=== PATIENT | male | born 1985 | race Caucasian/White ===

== ENCOUNTER 2019-12-07 18:39 | Observation (INO) | payer BC, OTHER, SELFPAY ==
[2019-12-07] VITALS (8 sets, daily range): BP systolic 94–120; BP diastolic 66–80; PULSE 68–86; RESP 16–20; TEMP 36.5–36.6; O2SAT 96–99; BMI 33.0
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
[2019-12-07 19:18] LABS: Basophils # 0.1 10^3/uL (0.0-0.1); Basophils % 0.2 %; Eosinophils # 0.1 10^3/uL (0.0-0.8); Eosinophils % 0.4 %; Hematocrit 51.5 % (42.0-52.0); Hemoglobin 16.9 g/dL (11.7-16.6); Lymphocytes # 1.6 10^3/uL (0.8-4.8); Lymphocytes % 7.9 %; Mean Corpuscular HGB Conc 32.8 g/dL (30.0-36.0); Mean Corpuscular Hemoglobin 30.8 pg (28.0-34.0); Mean Corpuscular Volume 93.8 fL (80-94); Mean Platelet Volume 9.5 fL (7.4-10.4); Monocytes # 0.8 10^3/uL (0.2-0.9); Monocytes % 4.2 %; Neutrophils # 17.5 10^3/uL (1.8-7.7); Neutrophils % 86.7 %; Nucleated Red Blood Cells % 0 %; Platelet Count 302 10^3/cmm (130-400); Red Blood Count 5.49 10^6/uL (4.1-5.3); Red Cell Distribution Width 12.9 % (12.1-15.1); White Blood Count 20.2 10^3/uL (4.0-10.0)
[2019-12-07] MEDS: HYDROmorphone 1 mg/mL INJ 1 mL IVP ×3 (19:25→23:09)
[2019-12-07 19:37] LABS: Alanine Aminotransferase 18 U/L (0-41); Albumin Level 4.9 g/dL (3.5-5.2); Alkaline Phosphatase 74 IU/L (40-130); Anion Gap 16.3 (5-19); Aspartate Amino Transferase 17 U/L (0-40); Blood Urea Nitrogen 13 mg/dL (6-20); Carbon Dioxide 26 mmol/L (22-29); Chloride 102 mmol/L (98-107); Globulin 2.7 g/dL (1.3-4.6); Glomerular Filtration Rate 86.6 mL/min (90-130); Glucose 148 mg/dL (65-115); Lipase 27 U/L (13-60); Osmolality Calculated 289 mOsm/kg (285-295); Potassium 4.3 mmol/L (3.5-5.1); Sodium 140 mmol/L (136-145); Total Bilirubin 0.3 mg/dL (0.15-1.2); Total Protein 7.6 g/dL (6.6-8.7)
[2019-12-07] MEDS: sodium chloride 0.9% 1,000 ML 999 ML IV (19:59)
[2019-12-07] MEDS: ondansetron 2 mg/ML SDV 2 mL 4 MG IVP ×2 (20:04→23:09)
[2019-12-07] MEDS: iohexol 300 mg/mL 100 mL Btl IV (20:17)
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
--- NOTE | 2019-12-07 21:24 | PC.NURSE ---
Pt. to CT and back via stretcher, stable
[2019-12-07] MEDS: ciprofloxacin 400 MG/200 ML PREMIX 200 MG IV (21:31)
[2019-12-07 21:45] LABS: Lactate (Lactic Acid level) 1.3 mmol/L (0.5-2.2)
[2019-12-07] MEDS: piperacillin-tazobactam 3.375 GM in sodium chloride 0.9% (plus) 50 ML IV (23:10)
[2019-12-07] MEDS: dextrose 5%-sod chloride 0.45% 1,000 ML 75 ML IV (23:10)
[2019-12-07 23:59] LABS: Add Urine Microscopic? NO
[2019-12-08 00:34] LABS: Bilirubin Urine Neg (NEGATIVE); Blood Urine Neg (Negative); Glucose Urine UA Norm (Normal); Ketones Urine Negative (Negative); Leukocyte Esterase Urine Negative (Negative); Nitrate Urine Negative (Negative); Protein Urine Neg (Negative); Urine Appearance Clear (CLEAR); Urine Color Yellow (Yellow); Urobilinogen Urine Norm (Negative); pH Urine 5 (5-7)
[2019-12-08 00:40] LABS: Amphetamines Screen Urine Negative (Negative); Barbiturates Screen Urine Negative (Negative); Benzodiazepines Screen Urine Negative (Negative); Cocaine Screen Urine Negative (Negative); Opiate Screen Urine Positive (Negative); PCP Screen Urine Negative (Negative); THC Screen Urine Negative (Negative)
[2019-12-08 04:00] VITALS: BP 95/57; PULSE 65; RESP 18; TEMP 37.1; O2SAT 98
[2019-12-08 05:14] LABS: Basophils % 0.4 %; Eosinophils # 0.2 10^3/uL (0.0-0.8); Eosinophils % 1.6 %; Hematocrit 44.7 % (42.0-52.0); Hemoglobin 14.4 g/dL (11.7-16.6); Mean Corpuscular HGB Conc 32.2 g/dL (30.0-36.0); Mean Corpuscular Hemoglobin 30.1 pg (28.0-34.0); Mean Corpuscular Volume 93.5 fL (80-94); Mean Platelet Volume 10.2 fL (7.4-10.4); Monocytes # 0.9 10^3/uL (0.2-0.9); Monocytes % 8.4 %; Neutrophils % 62.3 %; Nucleated Red Blood Cells % 0 %; Platelet Count 260 10^3/cmm (130-400); Red Blood Count 4.78 10^6/uL (4.1-5.3); Red Cell Distribution Width 13.1 % (12.1-15.1); White Blood Count 11.2 10^3/uL (4.0-10.0)
[2019-12-08] MEDS: piperacillin-tazobactam 3.375 GM in sodium chloride 0.9% (plus) 50 ML IV (06:39)
[2019-12-08 06:43] LABS: Anion Gap 13.9 (5-19); Blood Urea Nitrogen 8 mg/dL (6-20); Calcium 8.9 mg/dL (8.5-10.5); Carbon Dioxide 24 mmol/L (22-29); Chloride 106 mmol/L (98-107); Creatinine Clr Calc Pharmacy 160.3695; Glucose 120 mg/dL (65-115); Osmolality Calculated 287 mOsm/kg (285-295); Potassium 3.9 mmol/L (3.5-5.1); Sodium 140 mmol/L (136-145)
[2019-12-08 07:41] VITALS: BP 91/54; PULSE 84; RESP 18; TEMP 37; O2SAT 98
[2019-12-08] MEDS: pantoprazole 40 mg SDV IVP (08:50)
--- NOTE | 2019-12-08 09:10 | PC.CHAP ---
Pastoral Care Encounter/Spiritual Assessment Type of Contact [] Declined music publicist visit [] Patient/Family/Request visit [] Outpatient visit [] Follow-up visit [] Physician referral [] Code/Alert [x] Routine visit [] Staff referral [] Actively dying [] Patient sleeping [] Family support [] [] Out of room [] Palliative care [] [] Receiving care in room [] Pre-surgical visit [] Trauma [] Long length of stay [] ICU visit [] Other: Relational/Emotional Strength [] Patient feels connected with others/family/visitors/staff [] Distress [] Loneliness/isolation [] Abandonment Spirituality of Patient [] Person of Charis [] Attends Methodist of their Charis [] Believes in Prayer [] Reads Bible or Adventist materials [] There are Spiritual issues to be addressed Manhole Stripper Interventions [] Prayer [x] Active listening [x] Non-anxious presence [] Spiritual/emotional support [] Crisis/trauma care [] Spiritual counseling [] Bereavement support [] Provided bereavement packet [] Provided Bible/devotional materials [] Provided toy/stuffed animal, coloring book to patient or family member [] Provided Communion [] Anointing/[place] [] Salvation [x] Completed spiritual assessment [] Other: Impact on Illness or Injury [] Angry [] Fearful [] Anxious [] Often cries [] Exhaustion [] Unable to work [] Unable to attend latter day [] Unable to walk/stand [] Unable to read [] Unable to drive [] Unable to eat/drink [] Unable to sleep [] Unable to be with family [] Patient intubated [] Other: Summary Patient not in social mood. abd pain gone, wants to go home. Time spent with patient 5 min
[2019-12-08] MEDS: dextrose 5%-sod chloride 0.45% 1,000 ML 75 ML IV (10:37)
[2019-12-08 11:49] VITALS: BP 105/67; PULSE 69; RESP 18; TEMP 36.8; O2SAT 97
[2019-12-08] MEDS: sennosides-docusate Tablet 2 TAB PO (12:08)
[2019-12-08] MEDS: polyethylene glycol 3350 Pkt 17 gm PO (12:09)
--- NOTE | 2019-12-08 14:56 | P.DS_ITS ---
Discharge Providers Date of Admission: 12/07/19 21:00 Date of Discharge: December 08, 2019 Attending Provider at Admission: Hudson Strong MD Attending Provider at Discharge: Luis Staples MD Primary Care Provider: DOCTOR NOT ON FILE Diagnoses at Discharge Discharge Diagnosis (1) Jejunitis: Status: Acute Problem details: Patient reports that after passing air he is relatively asymptomatic, taking p.o. White blood cell count has dropped dramatically. (2) Abdominal pain: Status: Acute Qualifiers: Abdominal location: epigastric Qualified Code(s): R10.13 - Epigastric pain (3) Leukocytosis: Status: Acute Problem details: Significantly improved Reason for Visit Reason for Visit: abd pain Hospital Course Hospital Course: Vernon is a 34-year-old white male who presents to the hospital with significant abdominal pain. He reports that for a while he has been having episodes perhaps once a month where he will have some severe cramp ing, pain. He will then have a bowel movement and all of his symptomatology will go away. This is what happened to drive him to the emergency department this time. He denies any fever, blood in the stool. On CT scan there was concern of jejunitis. Patient reports overnight he has passed some air and he has no significant focal discomfort anymore. He has no nausea. He has been able to tolerate a diet. He has not yet had a bowel movement. He would like to go home. For the last year or so he has been having thin stools and a colonoscopy is planned very soon in [place]. White blood cell count initially high had improved drastically overnight. Lactate level was tested and normal. With his clinical improvement he will be discharged on MiraLAX, senna. He will get 7 days of Cipro and Flagyl. He will follow-up in [place] for colonoscopy. He will return for any concerns or worsening. He will also follow-up with his primary care provider. Physical Exam Narrative: EXAM NARRATIVE: Apparent distress Cardiovascular regular in rhythm without murmur Lungs clear Abdomen is soft. Perhaps some mild generalized tenderness Extremities no cyanosis clubbing or edema. Discharge Data Data Completed and Pending: Completed Studies During Hospitalization Category Date Time Status CT abdomen pelvis w con* [id number] Urge nt Cat Scan 12/07/19 19:16 Completed Pending at discharge Category Date Time Status Enteric Parasite Panel by PCR Stat Lab 12/07/19 22:37 Uncollected Stool Culture, Ba cterial [Enteric B acterial Panel by Lab 12/07/19 22:37 Uncollected PCR] Stat Labs from last 24 hours 12/08/19 12/08/19 12/07/19 04:27 04:27 21:14 WBC 11.2 H RBC 4.78 Hgb 14.4 Hct 44.7 MCV 93.5 MCH 30.1 MCHC 32.2 RDW 13.1 Plt Count 260 MPV 10.2 Neut % (Auto) 62.3 Lymph % (Auto) 27.0 [place] % (Auto) 8.4 Eos % (Auto) 1.6 Baso % (Auto) 0.4 Neut # (Auto) 7.0 Lymph # (Auto) 3.0 [place] # (Auto) 0.9 Eos # (Auto) 0.2 Baso # (Auto) 0.0 Nucleated RBC % (a uto) 0 Nucleated RBCs # 0.0 Sodium 140 Potassium 3.9 Chloride 106 Carbon Dioxide 24 Anion Gap 13.9 BUN 8 Creatinine 0.8 GFR Calculation 112.0 Glucose 120 H Calculated Osmolal ity 287 Lactate 1.3 Calcium 8.9 Total Bilirubin AST ALT Alkaline Phosphata se Total Protein Albumin Globulin Lipase Urine Color Urine Appearance Urine pH Ur Specific Gravit y Urine Protein Urine Glucose (UA) Urine Ketones Urine Blood Urine Nitrate Urine Bilirubin Urine Urobilinogen Ur Leukocyte Joyce ase Urine Opiates Scre en Ur Barbiturates Sc reen Ur Phencyclidine S crn Ur Amphetamines Sc reen U Benzodiazepines Scrn Urine Cocaine Scre en U Marijuana (THC) Screen 12/07/19 12/07/19 12/07/19 19:08 19:08 11:52 WBC 20.2 H RBC 5.49 H Hgb 16.9 H Hct 51.5 MCV 93.8 MCH 30.8 MCHC 32.8 RDW 12.9 Plt Count 302 MPV 9.5 Neut % (Auto) 86.7 Lymph % (Auto) 7.9 [place] % (Auto) 4.2 Eos % (Auto) 0.4 Baso % (Auto) 0.2 Neut # (Auto) 17.5 H Lymph # (Auto) 1.6 [place] # (Auto) 0.8 Eos # (Auto) 0.1 Baso # (Auto) 0.1 Nucleated RBC % (a uto) 0 Nucleated RBCs # 0.0 Sodium 140 Potassium 4.3 Chloride 102 Carbon Dioxide 26 Anion Gap 16.3 BUN 13 Creatinine 1.0 GFR Calculation 86.6 L Glucose 148 H Calculated Osmolal ity 289 Lactate Calcium 10.0 Total Bilirubin 0.3 AST 17 ALT 18 Alkaline Phosphata se 74 Total Protein 7.6 Albumin 4.9 Globulin 2.7 Lipase 27 Urine Color Urine Appearance Urine pH Ur Specific Gravit y Urine Protein Urine Glucose (UA) Urine Ketones Urine Blood Urine Nitrate Urine Bilirubin Urine Urobilinogen Ur Leukocyte Joyce ase Urine Opiates Scre en Positive H Ur Barbiturates Sc reen Negative Ur Phencyclidine S crn Negative Ur Amphetamines Sc reen Negative U Benzodiazepines Scrn Negative Urine Cocaine Scre en Negative U Marijuana (THC) Screen Negative 12/07/19 11:52 WBC RBC Hgb Hct MCV MCH MCHC RDW Plt Count MPV Neut % (Auto) Lymph % (Auto) [place] % (Auto) Eos % (Auto) Baso % (Auto) Neut # (Auto) Lymph # (Auto) [place] # (Auto) Eos # (Auto) Baso # (Auto) Nucleated RBC % (a uto) Nucleated RBCs # Sodium Potassium Chloride Carbon Dioxide Anion Gap BUN Creatinine GFR Calculation Glucose Calculated Osmolal ity Lactate Calcium Total Bilirubin AST ALT Alkaline Phosphata se Total Protein Albumin Globulin Lipase Urine Color Yellow Urine Appearance Clear Urine pH 5 Ur Specific Gravit y 1.010 Urine Protein Neg Urine Glucose (UA) Norm Urine Ketones Negative Urine Blood Neg Urine Nitrate Negative Urine Bilirubin Neg Urine Urobilinogen Norm Ur Leukocyte Joyce ase Negative Urine Opiates Scre en Ur Barbiturates Sc reen Ur Phencyclidine S crn Ur Amphetamines Sc reen U Benzodiazepines Scrn Urine Cocaine Scre en U Marijuana (THC) Screen Vitals: Last Vital Signs Temp 98.3 F 12/08/19 11:49 Pulse 69 12/08/19 11:49 Resp 18 12/08/19 11:49 BP 105/67 12/08/19 11:49 Pulse Ox 97 12/08/19 11:49 Discharge Plan Discharge Patient Disposition: Home, Self-Care Condition: Stable Prescriptions: New polyethylene glycol 3350 [Miralax] 17 gram Powder In Packet 17 g PO BID Qty: 60 RF: 0 ciprofloxacin HCl [Cipro] 500 mg tablet 500 mg PO BID Qty: 14 RF: 0 metronidazole [Flagyl] 500 mg tablet 500 mg PO TID Qty: 21 RF: 0 Senna Plus 8.6-50 mg capsule 1 tab-cap PO DAILY Qty: 30 RF: 0 No Action No Known Home Medications RF: 0 Discharge Orders: Discharge Order (Routine); Ordered 12/08/19 Ordered By: Luis Staples Discharge Diet: GI Soft Discharge Activity: Increase activity as tolerated Activity Restrictions/Additional Instructions: Take medicine as prescribed. Stop senna after having regular bowel movements. Continue MiraLAX Keep appointment with gastroenterology in [place] for colonoscopy within the next 2 to 3 weeks Return for any severe pain Finish antibiotics as prescribed for the next 7 days Return for any fever Follow-up with primary care provider in 4 to 7 days Discharge Attestations Time Spent in Discharge Care*: greater than 30 min Quality Metrics Clinical Quality Measures During this hospital stay, did patient experience: None Coding Level of Care Code Acute Tong Carrier for Alicja Meehan Diagnoses Jejunitis K52.9 Abdominal pain R10.13 Abdominal location: epigastric Leukocytosis D72.829
[2019-12-08 15:25] VITALS: BP 105/67; PULSE 69; RESP 18; TEMP 36.8; O2SAT 97
== END 2019-12-08 15:50 | disposition home or self-care (01) ==
LOC: ER 19:08 → MEDSURG 21:15
PROVIDERS: Admitting Provider Internal Medicine; Emergency Provider Emergency Medicine; PCP Internal Medicine; Visit Provider Internal Medicine
DX: K52.9 Noninfective gastroenteritis and colitis, unspecified (principal); R10.13 Epigastric pain; D72.829 Elevated white blood cell count, unspecified; F17.210 Nicotine dependence, cigarettes, uncomplicated
CPT/HCPCS: 12345; 36415; 74177; 80048; 80053; 80306; 81003; 83605; 83690; 85025; 96361; 96365; 96366; 96367; 96375; 96376; 99283; 99285; C9113; G0378; J0744; J1170; J2405; J2543; J7030; J7799; Q9967

== ENCOUNTER → 2023-02-03 16:10 | Outpatient (BNVA) | payer BC, SELFPAY | PROVIDERS: PCP Internal Medicine; Visit Provider Nurse Practitioner Family | DX: M79.641 Pain in right hand (principal) | CPT/HCPCS: 73130 ==